=== PATIENT | female | born 1995 | race Caucasian/White ===

== ENCOUNTER 2023-09-06 15:56 | Emergency (ER) | payer OTHER, SELFPAY ==
[2023-09-06 16:06] VITALS: BP 148/100; PULSE 94; RESP 16; TEMP 36.8; O2SAT 100
[2023-09-06 16:50] LABS: Basophils % 0.4 %; Eosinophils % 0.5 %; Lymphocytes # 2.1 10^3/uL (0.8-4.8); Lymphocytes % 26.6 %; Mean Corpuscular HGB Conc 32.6 g/dL (30-55); Mean Corpuscular Hemoglobin 31.3 pg (27-33); Mean Corpuscular Volume 96.1 fl (85-98); Mean Platelet Volume 10.6 fL (7.4-10.4); Monocytes # 0.6 10^3/uL (0.2-0.9); Monocytes % 7.6 %; Neutrophils # 5.14 10^3/uL (1.8-7.7); Neutrophils % 64.8 %; Nucleated Red Blood Cells % 0 %; Platelet Count 295 10^3/cmm (157-399); Red Blood Count 4.06 10^6/uL (3.85-5.65); Red Cell Distribution Width 12.4 % (12.1-15.1); White Blood Count 7.93 10^3/uL (3.29-11.43)
--- NOTE | 2023-09-06 18:40 | USR_ITS ---
PROCEDURE INFORMATION: Exam: US First Trimester, Transabdominal and US , Transvaginal Exam date and time: 09/06/2023 6:59 PM Age: 27 years old Clinical indication: complicated by abdominal or pelvic pain; Generalized abdominal pain; First trimester (<14 weeks 0 days); Gestational age or lmp: 6w 2d by lmp 5w 6 d by ev; ; Patient HX: G4-p2-a1-l2, miscarriage 06/25/2023. ; Additional info: Abd pain LABS AND CLINICAL REPORTS: Choriogonadotropin in serum (Serum HCG): 34677 mIU/mL Last menstrual period start date: 07/24/2023 Gestational age (Established): 6 w 2 d Estimated due date (Established): 04/29/2024 TECHNIQUE: Imaging protocol: Real-time transabdominal obstetrical ultrasound of the maternal pelvis and a first trimester , less than 14 weeks 0 days, with image documentation. Transvaginal imaging was used for better evaluation of the fetus, adnexa, and/or cervix. COMPARISON: No relevant prior studies available. FINDINGS: GESTATION: Gestation: Intrauterine gestation is visualized. pole is visualized. Yolk sac is visualized. Embryonic/ heart rate: 105 bpm Extra-embryonic membranes/Placenta: Unremarkable. No subchorionic bleed. Amniotic/Chorionic fluid: Amniotic and extra-amniotic fluid are normal for gestational age. BIOMETRY: Gestational age (AUA): 5 w 6 d Estimated due date (AUA): 05/02/2024 [place] rump length (CRL): 2.5 mm. EGA (CRL) is 5 w 6 d MATERNAL: Uterus: Uterus measures 8.18 cm x 5.98 cm x 5.34 cm. Cervix: Unremarkable. Endocervical canal is closed. Right ovary/adnexa: Right ovary measures 2.8 cm x 2.8 cm x 2.3 cm. Right ovarian volume is 9.5 mL. Left ovary/adnexa: Left ovary measures 3.7 cm x 3.3 cm x 2.3 cm. Left ovarian volume is 15.8 mL. Intraperitoneal space: No intraperitoneal free fluid. US/US OB <= 14 weeks fetus [id number] IMPRESSION: Live intrauterine gestation.
--- NOTE | 2023-09-06 18:41 | ED_ITS ---
HPI - Female Genitourinary 2 General: Chief complaint: Urogenital-Female Stated complaint: cramping, lower back pains, 6 weeks preg. Time Seen by Provider: 09/06/23 18:16 Source: patient Mode of arrival: ambulatory Limitations: no limitations History of Present Illness: 27-year-old female is currently 6 weeks she states that she has been having some lower abdominal cramping she denies any vaginal bleeding denies any severe dysuria. States she had a miscarriage in May and was concerned due to that. She denies any worse improved factors she rates her pain a 3 out of 10 currently Associated symptoms: Reports abdominal pain; Deny headache(s) or nausea Review of Systems 2 Const: Denies: fever(s), chills, body aches or change in appetite ENMT: Denies: throat pain or dental pain Card: Denies: chest pain Resp: Denies: dyspnea GI: Reports: abdominal pain; Denies: nausea, vomiting or diarrhea Musc: Denies: neck pain or back pain Skin/Breast: Denies: rash Neuro: Denies: headache(s) Physical Exam 2 Const: COMMON NORMALS: no acute distress, patient oriented x3 and healthy appearing HENMT: COMMON NORMALS: normocephalic and atraumatic HEAD & SCALP: n ormocephalic and atraumatic Eye: COMMON NORMALS: Equal, round and reactive pupils present and EOMs intact bilaterally PUPIL: Yes Equal, round and reactive pupils present Neck/C-Spine: COMMON NORMALS: full ROM and supple Chest: COMMONS NORMALS: normal inspection of the chest Resp: COMMON NORMALS: normal respiratory effort Cardio: COMMON NORMALS: regular rate, regular rhythm and No murmurs present (Cardio) RATE: regular rate RHYTHM: regular rhythm GI: COMMON NORMALS: Normal to inspection, nondistended, normoactive bowel sounds present, Soft to palpation, non-tender and no masses PALPATION: Yes Soft to palpation Extremity: COMMON NORMALS: normal to inspection and full ROM Neuro: COMMON NORMALS: patient oriented x3, moves all extremities and no focal motor deficits Psych: COMMON NORMALS: mental status grossly normal, Normal thought process present and cooperative THOUGHT PROCESS: Normal thought process present Skin: COMMON NORMALS: no rashes or lesions noted and no wounds GENERAL SKIN EXAM: no rashes or lesions noted Course 2 Vital Signs: Vital signs: Vital Signs Temperature 98.3 F 06/06/24 16:06 Pulse Rate 94 09/06/23 16:06 Respiratory Rate 16 09/06/23 16:06 Blood Pressure 148/100 09/06/23 16:06 Pulse Oximetry 100 09/06/23 16:06 MDM - Female Medical Decision Making Patient presents here with lower abdominal cramping in she is well- appearing her exam is benign ultrasound showed IUP she has no signs of miscarriage she stable for discharge she is follow-up with PCP return if worsening. Medical Records I reviewed the patient's medical records. Lab Data I reviewed the patient's lab results. 09/06/23 16:35 Radiology Impressions Ultrasound 09/06/23 18:40 IMPRESSION: Live intrauterine gestation. Laboratory Results WBC 7.93 10^3/uL (3.29-11.43) 09/06/23 16:35 RBC 4.06 10^6/uL (3.85-5.65) 09/06/23 16:35 Hgb 12.70 g/dL (11.27-16.99) 09/06/23 16:35 Hct 39.0 % (36-47) 09/06/23 16:35 MCV 96.1 fl (85-98) 09/06/23 16:35 MCH 31.3 pg (27-33) 09/06/23 16:35 MCHC 32.6 g/dL (30-55) 09/06/23 16:35 RDW 12.4 % (12.1-15.1) 09/06/23 16:35 Plt Count 295 10^3/cmm (157-399) 09/06/23 16:35 MPV 10.6 fL (7.4-10.4) H 09/06/23 16:35 Neut % (Auto) 64.8 % 09/06/23 16:35 Lymph % (Auto) 26.6 % 09/06/23 16:35 [place] % (Auto) 7.6 % 09/06/23 16:35 Eos % (Auto) 0.5 % 09/06/23 16:35 Baso % (Auto) 0.4 % 09/06/23 16:35 Neut # (Auto) 5.14 10^3/uL (1.8-7.7) 09/06/23 16:35 Lymph # (Auto) 2.1 10^3/uL (0.8-4.8) 09/06/23 16:35 [place] # (Auto) 0.6 10^3/uL (0.2-0.9) 09/06/23 16:35 Eos # (Auto) 0.0 10^3/uL (0.0-0.8) 09/06/23 16:35 Baso # (Auto) 0.0 10^3/uL (0.0-0.1) 09/06/23 16:35 Nucleated RBC % (auto) 0 % 09/06/23 16:35 Nucleated RBCs # 0.0 /100WBC 09/06/23 16:35 Ser , Semi-Qnt 19546.00 mIU/mL 09/06/23 16:35 Urine Color Yellow (Yellow) 09/06/23 18:37 Urine Appearance Cloudy (CLEAR) A 09/06/23 18:37 Urine pH 7 (5-7) 09/06/23 18:37 Ur Specific [place] 1.010 (1.005-1.030) 09/06/23 18:37 Urine Protein Neg (Negative) 09/06/23 18:37 Urine Glucose (UA) Norm (Normal) 09/06/23 18:37 Urine Ketones Negative (Negative) 09/06/23 18:37 Urine Blood Neg (Negative) 09/06/23 18:37 Urine Nitrate Negative (Negative) 09/06/23 18:37 Urine Bilirubin Neg (Negative) 09/06/23 18:37 Urine Urobilinogen Norm mg/dL (Negative) 09/06/23 18:37 Ur Leukocyte Esterase Trace (Negative) H 09/06/23 18:37 Urine RBC None /hpf (0-2) 09/06/23 18:37 Urine WBC None /hpf (0-5) 09/06/23 18:37 Ur Squamous Epith Cells None /hpf (0-5) 09/06/23 18:37 Ur Transition Epith Cell None /hpf 09/06/23 18:37 Ur Renal Epithelial Cell 0-4 /hpf 09/06/23 18:37 Amorphous Sediment Not Reportable 09/06/23 18:37 Urine Bacteria None /hpf (NONE) 09/06/23 18:37 Urine Mucus None /hpf 09/06/23 18:37 Blood Type O Positive 09/06/23 16:35 Rho(D) Type Rh positive 09/06/23 16:35 Antibody Screen Negative 09/06/23 16:35 All radiology interpretation(s) finalized by discharge Discharge Plan Discharge Patient Disposition: Home Clinical Impression: Abdominal pain in Condition: Stable Discharge Orders: Discharge ED (Routine); Ordered 09/06/23 Ordered By: Aris Proctor Discharge Diet: Advance as tolerated Discharge Activity: Resume usual activity Patient Instructions: Abdominal Pain (ED) Coding Level of Care Code ED [facility] for Marcello Hawk
[2023-09-06] MEDS: sodium chloride 0.9% 1,000 ML 999 ML IV (18:51)
[2023-09-06 19:04] LABS: Add Urine Microscopic? YES; Bilirubin Urine Neg (Negative); Blood Urine Neg (Negative); Glucose Urine UA Norm (Normal); Ketones Urine Negative (Negative); Leukocyte Esterase Urine Trace (Negative); Nitrate Urine Negative (Negative); Protein Urine Neg (Negative); Urine Appearance Cloudy (CLEAR); Urine Color Yellow (Yellow); Urobilinogen Urine Norm (Negative); pH Urine 7 (5-7)
[2023-09-06 19:11] LABS: Add Urine Culture? No; Renal Epithelial Cells Urine 0-4 /hpf
[2023-09-06 20:52] VITALS: BP 132/98; PULSE 87; RESP 16; TEMP 36.8; O2SAT 100
== END 2023-09-06 20:53 | disposition home or self-care (01) ==
PROVIDERS: Emergency Provider Emergency Medicine
DX: O26.891 Other specified pregnancy related conditions, first trimester (principal); R10.30 Lower abdominal pain, unspecified; Z3A.01 Less than 8 weeks gestation of pregnancy
CPT/HCPCS: 36415; 76801; 81001; 84702; 85025; 86850; 86900; 99284; J7030